=== PATIENT | male | born 1985 | race Caucasian/White ===

== ENCOUNTER 2021-03-29 15:31 | Inpatient (IN) | payer OTHER ==
[~2021-03-29] VITALS: Ht 175.3 cm; Wt 98.4 kg
[~2021-03-29 15:31] MED LIST: ADMELOG SO100 UNIT/1 SC; BASAGLAR K100 UNIT/1 SQ; BUPRENORPHIN-N1 EACH SL; GABAPENTIN300 MG PO; GLUCOTROL XL 5 M5 MG PO; HUMALOG 10100 UNITS/ SC; LANTUS INS100 UTS/M1 SC; NEURONTIN600 MG PO; NICOTINE PATCH1 EAC2 TOP; POLYETHYLENE GL17 GM PO
[2021-03-29 16:57] LABS: HEMOGLOBIN 13.8 gm/dl (14.0-17.5); RED BLOOD COUNT 4.43 M/UL (4.20-5.50); WHITE BLOOD COUNT 29.5 K/UL (4.5-11.0)
[2021-03-29 17:15] LABS: BUN/CREATININE RATIO 23 (0-10)
[2021-03-30 02:51] LABS: HEMOGLOBIN 13.2 gm/dl (14.0-17.5); RED BLOOD COUNT 4.33 M/UL (4.20-5.50); WHITE BLOOD COUNT 22.6 K/UL (4.5-11.0)
[2021-03-30] MEDS ORDERED: AMOXICILLIN500 MG PO (13:41)
[2021-03-30] MEDS ORDERED: BROMFED DM COU473 ML PO (13:44)
[2021-03-30] MEDS ORDERED: GLIPIZIDE5 MG PO (13:45)
[2021-03-30] MEDS ORDERED: IBU800 MG PO (13:46)
[2021-03-30] MEDS ORDERED: HUMALOG100 UNIT/3 SQ (13:47)
[2021-03-30] MEDS ORDERED: OLANZAPINE5 MG PO (13:48)
[2021-03-30] MEDS ORDERED: PROTONIX40 MG PO (13:48)
[2021-03-30] MEDS ORDERED: LANTUS SOL100 UNIT/1 SQ (13:51)
[2021-03-30 15:41] LABS: GLUCOSE,CSF 152 mg/dL (50-80); TOTAL PROTEIN,CSF 50 mg/dL (20-45)
[2021-03-31 08:12] LABS: HIV AB/P24 AG SCREEN Non Reactive (Non Reactive)
[2021-03-31 11:30] LABS: HEMOGLOBIN 10.7 gm/dl (14.0-17.5); RED BLOOD COUNT 3.6 M/UL (4.20-5.50); WHITE BLOOD COUNT 7.4 K/UL (4.5-11.0)
[2021-03-31 18:35] LABS: BUN/CREATININE RATIO 19 (0-10)
[2021-04-01 05:24] LABS: HEMOGLOBIN 10.3 gm/dl (14.0-17.5); RED BLOOD COUNT 3.46 M/UL (4.20-5.50)
[2021-04-01 05:25] LABS: WHITE BLOOD COUNT 5.3 K/UL (4.5-11.0)
[2021-04-01 06:01] LABS: BUN/CREATININE RATIO 19 (0-10)
[2021-04-02 05:12] LABS: HEMOGLOBIN 10.1 gm/dl (14.0-17.5); RED BLOOD COUNT 3.43 M/UL (4.20-5.50); WHITE BLOOD COUNT 5.7 K/UL (4.5-11.0)
[2021-04-02 05:52] LABS: BUN/CREATININE RATIO 20 (0-10)
[2021-04-03 05:37] LABS: HEMOGLOBIN 10.2 gm/dl (14.0-17.5); RED BLOOD COUNT 3.43 M/UL (4.20-5.50)
[2021-04-03 05:53] LABS: BUN/CREATININE RATIO 11 (0-10)
[2021-04-03 13:14] LABS: CSF IGG INDEX 0.7 (0.0-0.7); CSF/SERUM ALB. INDEX 7 (0-8); IMMUNOGLOBULIN G, QN, SERUM 1108 mg/dL (603-1613)
[2021-04-04 06:15] LABS: BUN/CREATININE RATIO 10 (0-10)
[2021-04-04 07:23] LABS: HEMOGLOBIN 9.5 gm/dl (14.0-17.5); RED BLOOD COUNT 3.16 M/UL (4.20-5.50); WHITE BLOOD COUNT 4.9 K/UL (4.5-11.0)
[2021-04-05 04:40] LABS: HEMOGLOBIN 9.2 gm/dl (14.0-17.5); RED BLOOD COUNT 3.13 M/UL (4.20-5.50)
[2021-04-05 05:15] LABS: BUN/CREATININE RATIO 11 (0-10)
[2021-04-06 06:22] LABS: BUN/CREATININE RATIO 11 (0-10)
[2021-04-07 05:36] LABS: BUN/CREATININE RATIO 13 (0-10)
--- NOTE | 2021-04-08 02:32 | NUR ---
BARIUM GIVEN VIA OGT TO PATIENT, CT NOTIFIED WILL TAKE PATIENT TO CT SCAN @3:30
[2021-04-08 05:45] LABS: HEMOGLOBIN 8.7 gm/dl (14.0-17.5); RED BLOOD COUNT 2.93 M/UL (4.20-5.50); WHITE BLOOD COUNT 5.4 K/UL (4.5-11.0)
[2021-04-08 06:29] LABS: BUN/CREATININE RATIO 13 (0-10)
[2021-04-09 05:28] LABS: HEMOGLOBIN 9.5 gm/dl (14.0-17.5); RED BLOOD COUNT 3.21 M/UL (4.20-5.50)
[2021-04-09 05:53] LABS: BUN/CREATININE RATIO 12 (0-10)
[2021-04-10 05:37] LABS: HEMOGLOBIN 9.5 gm/dl (14.0-17.5); RED BLOOD COUNT 3.21 M/UL (4.20-5.50); WHITE BLOOD COUNT 5.4 K/UL (4.5-11.0)
[2021-04-10 05:58] LABS: BUN/CREATININE RATIO 18 (0-10)
[2021-04-11 05:56] LABS: HEMOGLOBIN 9.3 gm/dl (14.0-17.5); RED BLOOD COUNT 3.18 M/UL (4.20-5.50); WHITE BLOOD COUNT 4.7 K/UL (4.5-11.0)
[2021-04-11 06:21] LABS: BUN/CREATININE RATIO 16 (0-10)
[2021-04-12 05:50] LABS: HEMOGLOBIN 9.6 gm/dl (14.0-17.5); RED BLOOD COUNT 3.29 M/UL (4.20-5.50)
--- NOTE | 2021-04-12 06:20 | NUR ---
ICE PACKS PLACED TO TEMP OF 101.9
[2021-04-12 06:49] LABS: BUN/CREATININE RATIO 11 (0-10)
[2021-04-12 15:14] LABS: ADENOVIRUS F 40/41 Not Detected (Negative); ASTROVIRUS Not Detected (Negative); CAMPYLOBACTER Not Detected (Negative); CRYPTOSPORIDIUM Not Detected (Negative); E.COLI 0157 Not Detected (Negative); ENTAMOEBA HISTOLYTICA Not Detected (Negative); ENTEROAGGREGATIVE E.COLI (EAEC Not Detected (Negative); ENTEROPATHOGENIC E.COLI (EPEC) Not Detected (Negative); ENTEROTOXIGENIC E.COLI (ETEC) Not Detected (Negative); GIARDIA LAMBLIA Not Detected (Negative); NOROVIRUS GI/GII Not Detected (Negative); PLESIOMONAS SHIGELLOIDES Not Detected (Negative); ROTOVIRUS A Not Detected (Negative); SALMONELLA Not Detected (Negative); SAPOVIRUS Not Detected (Negative); SHIG/ENTEROINVAS.ECOLI (EIEC) Not Detected (Negative); SHIGA-LIK TOX.PRO.E.COLI (STEC Not Detected (Negative); VIBRIO Not Detected (Negative); VIBRIO CHOLERAE Not Detected (Negative); YERSINIA ENTEROCOLITICA Not Detected (Negative)
[2021-04-12 17:01] LABS: CLOSTRIDIUM DIFFICILE TOX A/B DETECTED (Negative)
--- NOTE | 2021-04-12 19:53 | NUR ---
LATE ENTRY 04/12/20211914 REPORT GIVEN TO SAKINA RAMIRES RN
[2021-04-13] MEDS ORDERED: NYSTATIN60 GM TOP (11:24)
[2021-04-13] MEDS ORDERED: VANCOCIN 125 M125 MG PO (11:28)
--- NOTE | 2021-04-14 02:23 | NUR ---
PT REQUESTED TO BE MOVED TO THE CHAIR. PT WAS INSTRUCTED OF RISKS DUE TO WEAKNESS. PATIENT INSISTED HE WANTED TO SIT IN THE CHAIR. PATIENT WAS PLACED IN THE CHAIR WITH THE HELP OF A FELLOW NURSE AND NURSE AID. CHAIR ALARM WAS ACTIVATED. WITHIN FIVE MINUTES THE CHAIR ALARM SOUNDED AND THE PATIENT WAS FOUND SITTING IN THE FLOOR. THE PATIENT SAID HE SLID OUT OF THE CHAIR. PATIENT WAS EXAMINED FOR INJURY. PATIENT STAED THAT HE WAS FINE AND THERE APPEARED TO BE NO OBVIOUS INJURY. PHYSICIAN WAS NOTIFY OF EVENT AND ASKED IF ANY FURTHER EVALUATION NEEDED TO BE MADE. NO NEW ORDERS WAS OBTAINED. PATIENT WAS PLACED BACK IN THE BED WITH BED ALARM ACTIVATED, PATIENT WAS INSTRUCTED ON THE PROPER USE OF HIS CALL LIGHT. WILL CONTINUE TO MONITOR.
[2021-04-14 05:22] LABS: BUN/CREATININE RATIO 14 (0-10)
[2021-04-14] MEDS ORDERED: ELIQUIS5 M1 PO (14:28)
== END 2021-04-14 12:09 | disposition left against medical advice (07) | DRG 870 ==
LOC: ER1 15:31 → CCU 20:17 → CDU 20:17 → CCU 23:39 → PROG CARE 04-12 19:51
PROVIDERS: Internal Medicine; Internal Medicine Nephrology; Internal Medicine Pulmonary Disease; Preventive Medicine Occupational Medicine; Registered Nurse; ADMIT Internal Medicine
PROC: 5A1955Z Respiratory Ventilation, Greater than 96 Consecutive Hours (ICD-10-PCS; principal; 2021-03-29)
PROC: 0BH17EZ Insertion of Endotracheal Airway into Trachea, Via Natural or Artificial Opening (ICD-10-PCS; principal; 2021-03-29)
PROC: 3E033XZ Introduction of Vasopressor into Peripheral Vein, Percutaneous Approach (ICD-10-PCS; 2021-03-29)
PROC: 009U3ZX Drainage of Spinal Canal, Percutaneous Approach, Diagnostic (ICD-10-PCS; 2021-03-30)
PROC: B24BZZZ Ultrasonography of Heart with Aorta (ICD-10-PCS; 2021-03-30)
PROC: 0DH67UZ Insertion of Feeding Device into Stomach, Via Natural or Artificial Opening (ICD-10-PCS; 2021-04-02)
PROC: 3E0G76Z Introduction of Nutritional Substance into Upper GI, Via Natural or Artificial Opening (ICD-10-PCS; 2021-04-02)
PROC: 0B9F8ZX Drainage of Right Lower Lung Lobe, Via Natural or Artificial Opening Endoscopic, Diagnostic (ICD-10-PCS; 2021-04-02)
DX: A41.02 Sepsis due to Methicillin resistant Staphylococcus aureus (principal); E10.10 Type 1 diabetes mellitus with ketoacidosis without coma; Z20.822 Contact with and (suspected) exposure to COVID-19; G93.41 Metabolic encephalopathy; J96.01 Acute respiratory failure with hypoxia; J15.212 Pneumonia due to Methicillin resistant Staphylococcus aureus; I26.99 Other pulmonary embolism without acute cor pulmonale; R65.21 Severe sepsis with septic shock; N17.0 Acute kidney failure with tubular necrosis; J69.0 Pneumonitis due to inhalation of food and vomit; A04.72 Enterocolitis due to Clostridium difficile, not specified as recurrent; I82.4Z1 Acute embolism and thrombosis of unspecified deep veins of right distal lower extremity; K56.7 Ileus, unspecified; I82.461 Acute embolism and thrombosis of right calf muscular vein; E87.5 Hyperkalemia; E87.6 Hypokalemia; B19.20 Unspecified viral hepatitis C without hepatic coma; E10.65 Type 1 diabetes mellitus with hyperglycemia; E83.51 Hypocalcemia; D64.9 Anemia, unspecified; R74.01 Elevation of levels of liver transaminase levels; L89.022 Pressure ulcer of left elbow, stage 2; E83.39 Other disorders of phosphorus metabolism; F19.10 Other psychoactive substance abuse, uncomplicated; I16.0 Hypertensive urgency; D63.8 Anemia in other chronic diseases classified elsewhere; L89.112 Pressure ulcer of right upper back, stage 2; L89.151 Pressure ulcer of sacral region, stage 1; L89.626 Pressure-induced deep tissue damage of left heel; R53.81 Other malaise; Z83.3 Family history of diabetes mellitus; Z91.51 Personal history of suicidal behavior; Z79.4 Long term (current) use of insulin; Z98.890 Other specified postprocedural states
CPT/HCPCS: 0240U; 31500; 36415; 36600; 51702; 70450; 71045; 71275; 74018; 76882; 80048; 80053; 80202; 80307; 81001; 82009; 82040; 82140; 82550; 82553; 82607; 82728; 82747; 82784; 82803; 82945; 82947; 82962; 83036; 83540; 83550; 83605; 83615; 83690; 83735; 83874; 83880; 83916; 83921; 84100; 84132; 84157; 84439; 84443; 84484; 85025; 85027; 85379; 85610; 85652; 85730; 86140; 87015; 87040; 87070; 87077; 87081; 87086; 87116; 87186; 87205; 87206; 87252; 87324; 87389; 87449; 87507; 89051; 92526; 92610; 93005; 93970; 94002; 94003; 94640; 94760; 94762; 96374; 96375; 96376; 97162; 97167; 97530; 97535; 99285; A6212; C9113; G0480; J0290; J0330; J0692; J1644; J1650; J1940; J2020; J2060; J2185; J2212; J2250; J2405; J2543; J2704; J2765; J3370; J3480; J3486; J7030; J7070; P9047; Q9967